=== PATIENT | male | born 1970 | race American Indian/Alaskan Native ===

== ENCOUNTER 2018-12-13 15:46 | Emergency (ER) | payer SELFPAY ==
--- NOTE | 2018-12-13 15:53 | Event Note ---
ED Screening Note Date of service: 12/13/18 Time: 15:52 ED Screening Note: 48 y/o male c/o left hand swelling after he was stung by a bee 20 min [employer]. This initial assessment/diagnostic orders/clinical plan/treatment(s) is/are subject to change based on patients health status, clinical progression and re- assessment by fellow clinical providers in the ED. Further treatment and workup at subsequent clinical providers discretion. Patient/guardian urged not to elope from the ED as their condition may be serious if not clinically assessed and managed. Initial orders include:
[2018-12-13 15:57] VITALS: BP 155/94
[2018-12-13] MEDS ORDERED: dexAMETHasone 20 MG/5 ML VIAL IM ONE (17:31)
--- NOTE | 2018-12-13 17:35 | Emergency Department Report ---
ED Allergic Reaction HPI - General Chief complaint: Allergic Reaction Stated complaint: STUNG BY A BEE Time Seen by Provider: 12/13/18 15:51 Source: patient Mode of arrival: Ambulatory Limitations: No Limitations - History of Present Illness Initial Comments: Patient reports left hand swelling that started after he was stung by an unknown insect MD Complaint: allergic reaction (contact) Onset/Timin -: minutes(s) Exposure: unknown Symptoms: other (swelling to left hand). denies: rash, itching, facial swelling, lip swelling, difficulty swallowing, difficulty breathing, orolingual swelling, hoarseness, syncopy, dizziness, nausea, vomiting, abdominal pain Severity: moderate Treatment Prior to Arrival: none Previous Allergy History: other (bee stings) - Related Data Previous Rx's Medication Instructions Recorded Last Taken Type Ibuprofen [Motrin 600 MG tab] 600 mg PO Q8H PRN #30 tablet 12/13/18 Unknown Rx diphenhydrAMINE [Benadryl CAP] 25 mg PO Q6HR PRN #25 capsule 12/13/18 Unknown Rx predniSONE [Deltasone] 20 mg PO BID #10 tab 12/13/18 Unknown Rx Allergies Allergy/AdvReac Type Severity Reaction Status Date / Time MINA Inhibitors Allergy Anaphylaxis Verified 12/13/18 15:53 venom-honey bee Allergy Swelling Verified 12/13/18 15:53 ED Review of Systems ROS: Stated complaint: STUNG BY A BEE Other details as noted in HPI Constitutional: denies: chills, fever Eyes: denies: eye pain, eye discharge, vision change ENT: denies: ear pain, throat pain Respiratory: denies: cough, orthopnea, shortness of breath, SOB with exertion, SOB at rest, stridor, wheezing Cardiovascular: denies: chest pain, palpitations, dyspnea on exertion, orthopnea Endocrine: no symptoms reported Gastrointestinal: denies: abdominal pain, nausea, diarrhea Genitourinary: denies: urgency, dysuria Musculoskeletal: joint swelling (left hand). denies: back pain, arthralgia Skin: denies: rash, lesions Neurological: denies: headache, weakness, paresthesias Psychiatric: denies: anxiety, depression Hematological/Lymphatic: denies: easy bleeding, easy bruising ED Past Medical Hx - Past Medical History Previous Medical History?: Yes Hx Hypertension: Yes Additional medical history: kidney stones - Surgical History Past Surgical History?: Yes Additional Surgical History: kidney surgery - Social History Smoking Status: Current Every Day Smoker Substance Use Type: None - Medications Home Medications: Home Medications Medication Instructions Recorded Confirmed Last Taken Type Ibuprofen [Motrin 600 MG tab] 600 mg PO Q8H PRN #30 tablet 12/13/18 Unknown Rx diphenhydrAMINE [Benadryl CAP] 25 mg PO Q6HR PRN #25 capsule 12/13/18 Unknown Rx predniSONE [Deltasone] 20 mg PO BID #10 tab 12/13/18 Unknown Rx ED Physical Exam - General Limitations: No Limitations General appearance: alert, in no apparent distress - ENT ENT exam: Present: normal orophraynx, mucous membranes moist - Neck Neck exam: Present: normal inspection, full ROM. Absent: tenderness, meningismus, lymphadenopathy, thyromegaly - Respiratory Respiratory exam: Present: normal lung sounds bilaterally. Absent: respiratory distress, wheezes, rales, rhonchi, stridor, chest wall tenderness, accessory muscle use, decreased breath sounds, prolonged expiratory - Cardiovascular Cardiovascular Exam: Present: tachycardia, normal heart sounds. Absent: normal rhythm, bradycardia, irregular rhythm, systolic murmur, diastolic murmur, rubs, gallop - Expanded Upper Extremity Exam Left Shoulder Exam: Present: normal inspection, full ROM Upper Arm exam: Present: normal inspection, full ROM Elbow exam: Present: normal inspection, full ROM Forearm Wrist exam: Present: normal inspection, full ROM Hand Wrist exam: Present: full ROM, tenderness (4 & 5 metacarpal ), swelling. Absent: abrasion, laceration, ecchymosis, deformity, crepidus, dislocation, erythema, amputation, nail avulsion, subungual hematoma Neuro motor exam: Present: wrist extension intact, thumb opposition intact, thumb IP flexion intact, thumb adduction intact, fingers 2-5 abduction intact Neurosensory exam: Present: 2-point discrimination, radial nerve intact, ulnar nerve intact, median nerve intact Vascular: Present: normal capillary refill, radial pulse (2+), brachial pulse (2+), ulnar pulse (2+). Absent: vascular compromise, Pallo, pulse deficit radial art, pulse deficit ulnar art, pulse deficit brachial art - Neurological Exam Neurological exam: Present: alert, oriented X3, CN II-XII intact, normal gait, reflexes normal. Absent: motor sensory deficit - Psychiatric Psychiatric exam: Present: normal affect, normal mood ED Course Vital Signs 12/13/18 15:55 Temperature 98.8 F Pulse Rate 129 H Respiratory 20 Rate Blood Pressure 155/94 O2 Sat by Pulse 98 Oximetry ED Medical Decision Making - Lab Data Vital Signs 12/13/18 15:55 Temperature 98.8 F Pulse Rate 129 H Respiratory 20 Rate Blood Pressure 155/94 O2 Sat by Pulse 98 Oximetry - Medical Decision Making During the course of ED, all other systems are unremarkable except for documentation. Patient was sent home with prescriptions for Ibuprofen, Benadryl and Prednisone, ice pack, instructed to return back to the ED for worsening symptoms or concerns, he verbalized understanding - Differential Diagnosis Allergic Dermatitis, Contact Dermatitis Critical care attestation.: If time is entered above; I have spent that time in minutes in the direct care of this critically ill patient, excluding procedure time. ED Disposition Clinical Impression: Allergic dermatitis Disposition: DC-01 TO HOME OR SELFCARE Is pt being admited?: No Does the pt Need Aspirin: No Condition: Stable Instructions: Insect Bite or Sting (ED) Additional Instructions: Take medication as directed. No drinking or driving while taking Benadryl. Apply ice pack to the left hand every hour for only 15 minutes to assist with the swelling. Follow up with your PCP. Return back to the ED for worsening symptoms Prescriptions: diphenhydrAMINE [Benadryl CAP] 25 mg PO Q6HR PRN #25 capsule PRN Reason: Itching predniSONE [Deltasone] 20 mg PO BID #10 tab Ibuprofen [Motrin 600 MG tab] 600 mg PO Q8H PRN #30 tablet PRN Reason: Pain Referrals: [facility] [Outside] - 3-5 Days Time of Disposition: 17:39
== END 2018-12-13 18:02 | disposition home or self-care (01) ==
LOC: ED 15:46
DX: L23.9 Allergic contact dermatitis, unspecified cause (principal); I10 Essential (primary) hypertension; F17.200 Nicotine dependence, unspecified, uncomplicated
CPT/HCPCS: 99281; J1100